=== PATIENT | male | born 1945 | race Two or more races ===

== ENCOUNTER → 2023-09-30 09:50 | Outpatient (REF) | payer MEDICARE, SELFPAY | LOC: RAD 09:50 | PROVIDERS: ATTENDING PHYSICIAN Surgery Vascular Surgery; FAMILY PHYSICIAN Family Medicine | DX: I77.9 Disorder of arteries and arterioles, unspecified (principal) | CPT/HCPCS: 93922; 93925 ==

== ENCOUNTER → 2024-04-19 12:58 | Outpatient (REF) | payer MEDICARE, SELFPAY | LOC: DHVS 12:58 | PROVIDERS: ATTENDING PHYSICIAN Surgery Vascular Surgery; FAMILY PHYSICIAN Family Medicine | DX: I77.9 Disorder of arteries and arterioles, unspecified (principal) | CPT/HCPCS: 93922 ==

== ENCOUNTER → 2024-05-03 12:22 | Outpatient (REF) | payer MEDICARE, SELFPAY | LOC: HWRAD 12:22 | PROVIDERS: ATTENDING PHYSICIAN Family Medicine | DX: S69.92XA Unspecified injury of left wrist, hand and finger(s), initial encounter (principal); R07.81 Pleurodynia | CPT/HCPCS: 71101; 73130 ==

== ENCOUNTER → 2024-05-05 08:02 | Outpatient (REF) | payer MEDICARE, SELFPAY | LOC: HWRAD 08:02 | PROVIDERS: ATTENDING PHYSICIAN Surgery Vascular Surgery; FAMILY PHYSICIAN Family Medicine | DX: I77.9 Disorder of arteries and arterioles, unspecified (principal) | CPT/HCPCS: 75635; Q9967 ==

== ENCOUNTER → 2024-06-01 11:39 | Outpatient (REF) | payer MEDICARE, SELFPAY | LOC: HWRAD 11:39 | PROVIDERS: ATTENDING PHYSICIAN Internal Medicine Interventional Cardiology; FAMILY PHYSICIAN Family Medicine | DX: I10 Essential (primary) hypertension (principal); E78.2 Mixed hyperlipidemia; E11.9 Type 2 diabetes mellitus without complications; R06.09 Other forms of dyspnea | CPT/HCPCS: 71046 ==

== ENCOUNTER → 2024-06-08 07:10 | Outpatient (REF) | payer MEDICARE, SELFPAY | LOC: HWRCS 07:10 | PROVIDERS: ATTENDING PHYSICIAN Internal Medicine Interventional Cardiology; FAMILY PHYSICIAN Family Medicine | DX: I10 Essential (primary) hypertension (principal); E78.2 Mixed hyperlipidemia; E11.9 Type 2 diabetes mellitus without complications; R06.09 Other forms of dyspnea | CPT/HCPCS: 93306 ==

== ENCOUNTER → 2024-06-21 11:30 | Outpatient (REF) | payer MEDICARE, SELFPAY | LOC: HWRAD 11:30 | PROVIDERS: ATTENDING PHYSICIAN Internal Medicine Critical Care Medicine; FAMILY PHYSICIAN Family Medicine | DX: F17.210 Nicotine dependence, cigarettes, uncomplicated (principal) | CPT/HCPCS: 71271 ==

== ENCOUNTER → 2025-06-20 14:17 | Outpatient (REF) | payer MEDICARE, SELFPAY | LOC: DHVS 14:17 | PROVIDERS: ATTENDING PHYSICIAN Internal Medicine Critical Care Medicine; FAMILY PHYSICIAN Family Medicine; REFERRING PHYSICIAN Surgery Vascular Surgery | DX: F17.210 Nicotine dependence, cigarettes, uncomplicated (principal); I77.9 Disorder of arteries and arterioles, unspecified | CPT/HCPCS: 71250; 93922 ==